=== PATIENT | male | born 1970 | race Caucasian/White ===

== ENCOUNTER 2020-12-30 00:16 | Emergency (ER) | payer MEDICAID, SELFPAY ==
[2020-12-30 00:19] VITALS: BP 144/102; PULSE 98; RESP 18; TEMP 36.9; O2SAT 98; BMI 29.5
[2020-12-30 01:21] VITALS: BP 153/92; PULSE 82; RESP 16; O2SAT 96
--- NOTE | 2020-12-30 01:42 | ED.SKABFB ---
HPI - Skin/Abscess/Foreign Bdy General Chief complaint: Skin/Abscess/Foreign Body Stated complaint: abcess Time Seen by Provider: 12/30/20 01:34 Source: patient Mode of arrival: ambulatory Limitations: no limitations History of Present Illness HPI narrative: Patient comes emergency room complaining of swelling, redness and warmth in the right forearm that started 10 days ago. Patient states that a few days ago, he did a needle aspiration at home and was able to express a significant amount of pus. Patient states that for the last 2 days, he has been taking clindamycin that was given by his mother who had left over medication. Patient denies fever chills. MD complaint: abscess/boil Related Data Previous Rx's Medication Instructions Recorded cephalexin [Keflex] 750 mg PO BID #14 cap 12/30/20 doxycycline hyclate 100 mg PO DAILY #14 cap 12/30/20 tramadol 50 mg PO Q8H PRN #10 tab 12/30/20 Allergies Allergy/AdvReac Type Severity Reaction Status Date / Time No Known Allergies Allergy Verified 12/30/20 00:18 [No Known Allergies*] Review of Systems Review of Systems: Constitutional : No Weight loss, No Fever, No Chills, No Night Sweats, No Fatigue, No Malaise ENT/Mouth : No Hearing loss, No Ear Pain, No Nasal Congestion, No Sinus Pain, No Hoarseness, No sore throat, No Rhinorrhea, No Swallowing Difficulty Eyes: No Eye Pain, No Swelling, No Redness, No Foreign Body, No Discharge, No Vision Changes Cardiovascular : No Chest Pain, No SOB, No Dyspnea on Exertion, No Orthopnea, No Edema, No Palpitations Respiratory : No Cough, No Sputum, No Wheezing, No Smoke Exposure, No Dyspnea Gastrointestinal : No Nausea, No Vomiting, No Diarrhea, No Constipation, No abdominal Pain, No Hematochezia, No Melena Genitourinary : no irregular bleeding, No Dysuria, No Urinary Frequency, No Hematuria, No Urinary Incontinence, No Urgency, No Flank Pain, No Urinary Flow Changes, No Hesitancy Musculoskeletal : No joint pain, No Myalgias, No Joint Swelling Skin : Right arm swelling and redness , pain to touch Neuro : No Weakness, No Numbness, No Paresthesias, No Loss of Consciousness, No Dizziness, No Headache Psych : No Anxiety/Panic, No Depression, No SI/HI/AH/VH, No Social Issues, Heme/Lymph: No Bruising, No Bleeding,No Lymphadenopathy Endocrine : No Polyuria, No Polydipsia, No Temperature Intolerance [facility] Social History Social History Alcohol intake: never Smoking Status: Current every day smoker Use of substances other than those prescribed or required for medical reasons: No Advance Directives: No Physical Exam Vital Signs: Vital Signs: Last Vital Signs Temp 98.5 F 12/30/20 00:19 Pulse 82 12/30/20 01:21 Resp 16 12/30/20 01:21 BP 153/92 H 12/30/20 01:21 Pulse Ox 96 12/30/20 01:21 Body Mass Index 29.5 Appearance: Alert. Oriented X3. No acute distress. Eyes: Pupils equal, round and reactive to light. ENT: Pharynx normal. Neck: Normal inspection. Neck supple. No lymph nodes noted. No crepitus CVS: Normal heart rate and rhythm. Pulses normal. Normal S1 and S2 Respiratory: No respiratory distress. Breath sounds normal. No Wheezing. No rales Abdomen: Soft and nontender. No rigidity. No distention. good BS x4 Skin: Skin warm and dry. Right arm swelling, erythema, pain to palpation, bedside ultrasound shows a small abscess, approximately 2 Extremities: No lower extremity edema. No lower extremity edema. No Lacerations. No Rash Neuro: Oriented X 3. No motor deficit. No sensory deficit. Moving all extermities. No slurred speech. Course Course Course Narrative: Patient tolerated well the procedure. A large amount of pus was expressed. Axilla procedure, patient was able to close and open his hand with no pain, able to flex and extend her wrist and elbow. Procedures Abscess I/D Site: upper extremity Side (if applicable): right Local Anesthetic: lidocaine 2% Amount of anesthesia used (mL): 10 Technique: incised with blade Amount of fluid expressed (mL): 30 Sent for culture/gram staining?: No Irrigation: Yes Packing used?: iodoform Discharge Plan Discharge Clinical Impression: Abscess of skin or subcutaneous tissue Qualifiers: Site of cutaneous abscess: extremity Site of cutaneous abscess of extremity: upper extremity Laterality: right Qualified Code(s): L02.413 - Cutaneous abscess of right upper limb Patient Disposition: Home, Self-Care Instructions: Abscess (ED), Abscess Follow-up (ED), Abscess Incision and Drainage (DC) Additional Instructions: The packing needs to be removed in 24 hours, it may be done in the emergency room or with your primary care physician. Please follow-up with your primary care physician tomorrow. If you have any worsening or new symptoms, please return to the emergency room or call 911 Prescriptions: New cephalexin [Keflex] 750 mg capsule 750 mg PO BID Qty: 14 RF: 0 doxycycline hyclate 100 mg capsule 100 mg PO DAILY Qty: 14 RF: 0 tramadol 50 mg tablet 50 mg PO Q8H PRN (Reason: pain) Qty: 10 RF: 0
[2020-12-30] MEDS: Lidocaine HCl 2 % MPF 5 ML VIAL 10 ML INFILTRATI (01:57)
[2020-12-30 02:00] VITALS: PULSE 75; RESP 18; O2SAT 98
[2020-12-30] MEDS: oxyCODONE HCl Immed Release 5 MG TABLET PO (02:23)
== END 2020-12-30 02:33 | disposition home or self-care (01) ==
PROVIDERS: Emergency Provider Emergency Medicine
DX: L02.413 Cutaneous abscess of right upper limb (principal); M79.621 Pain in right upper arm; F17.200 Nicotine dependence, unspecified, uncomplicated; Z71.6 Tobacco abuse counseling; Z79.899 Other long term (current) drug therapy
CPT/HCPCS: 10060; 99284

== ENCOUNTER 2021-01-01 11:10 | Emergency (ER) | payer MEDICAID, SELFPAY ==
[2021-01-01 11:21] VITALS: BP 144/96; PULSE 92; RESP 18; TEMP 36.4; O2SAT 95; BMI 31.4
--- NOTE | 2021-01-01 11:53 | ED_ITS ---
HPI - General Adult General Chief complaint: Recheck/Abnormal Lab/Rx Stated complaint: WOUND CHECK Time Seen by Provider: 01/01/21 11:53 Source: patient Limitations: no limitations History of Present Illness HPI narrative: Patient complaining questionable packing going into his abscess on his right forearm. Patient had abscess drained last week. Packing was still in place to not return to have it removed. Patient denies any pain fever Related Data Previous Rx's Medication Instructions Recorded cephalexin [Keflex] 750 mg PO BID #14 cap 12/30/20 doxycycline hyclate 100 mg PO DAILY #14 cap 12/30/20 tramadol 50 mg PO Q8H PRN #10 tab 12/30/20 Allergies Allergy/AdvReac Type Severity Reaction Status Date / Time No Known Allergies Allergy Verified 12/30/20 00:18 [No Known Allergies*] Review of Systems Constitutional: Constitutional: Denies chills, Denies fever(s) and Denies weakness Cardiovascular: Cardiovascular: Denies chest pain and Denies dyspnea Respiratory: Respiratory: Denies dyspnea Musculoskeletal: Musculoskeletal: Reports no additional musculoskeletal complaints Comments: No forearm pain Neurologic: Denies weakness [facility] Past Medical History Attestation statement: The following information was validated with the patient. Social History Social History Alcohol intake: never Smoking Status: Current every day smoker Advance Directives: Yes Advance Directives Information Provided: No Advance Directives on File: No Physical Exam Vital Signs: Vital Signs: Last Vital Signs Temp 97.6 F 01/01/21 11:21 Pulse 92 01/01/21 11:21 Resp 18 01/01/21 11:21 BP 144/96 H 01/01/21 11:21 Pulse Ox 95 01/01/21 11:21 Body Mass Index 31.4 vital signs have been reviewed as normal and appeared to be correct. Blood pressure normal. Heart rate normal. Respiration rate normal. Temperature normal. Oxygen saturation normal. Appearance: Alert. Oriented X3. No acute distress. Head: Normal external exam. Normocephalic. Atraumatic. Eyes: PERRLA. EOMI. CVS: Heart regular rate and rhythm no murmurs and rubs Respiratory: Breath sounds are clear to auscultation bilaterally. No accessory muscle use noted. Skin: Right forearm well-healing abscess no purulent discharge or erythema or induration. Extremities: No lower extremity edema. Extremities exhibit normal range of motion. Extremities nontender. Neuro: Oriented X 3. No motor deficit. Course Course Course Narrative: Differential diagnosis: Abscess check right Cellulitis 11:50 a.m. patient is concerned that the packing went inside his wound once the dressing was removed by the triage nurse packing was seen on the dressing. Patient instructed to follow up as needed continue any current medications. Discharge Plan Discharge Clinical Impression: Wound abscess Patient Disposition: Home, Self-Care Instructions: Abscess Follow-up (ED) Additional Instructions: Right forearm abscess is healing well Continue any antibiotics that were prescribed Prescriptions: No Action cephalexin [Keflex] 750 mg capsule 750 mg PO BID Qty: 14 RF: 0 doxycycline hyclate 100 mg capsule 100 mg PO DAILY Qty: 14 RF: 0 tramadol 50 mg tablet 50 mg PO Q8H PRN (Reason: pain) Qty: 10 RF: 0
== END 2021-01-01 12:00 | disposition home or self-care (01) ==
PROVIDERS: Emergency Provider Emergency Medicine
DX: L02.413 Cutaneous abscess of right upper limb (principal); F17.200 Nicotine dependence, unspecified, uncomplicated; Z71.6 Tobacco abuse counseling; Z79.899 Other long term (current) drug therapy
CPT/HCPCS: 99282; 99283

== ENCOUNTER 2021-03-14 18:30 | Emergency (ER) | payer MEDICAID, SELFPAY | END 2021-03-14 19:51 | disposition left against medical advice (07) | LOC: HO.ED 19:49 | PROVIDERS: Emergency Provider Emergency Medicine | DX: S99.929A Unspecified injury of unspecified foot, initial encounter (principal); X58.XXXA Exposure to other specified factors, initial encounter; Y93.9 Activity, unspecified; Y92.9 Unspecified place or not applicable; Y99.9 Unspecified external cause status ==

== ENCOUNTER 2022-04-05 10:41 | Outpatient (REF) | payer MEDICAID, SELFPAY ==
[2022-04-05 11:57] LABS: Alanine Aminotransferase 17 U/L (0-40); Albumin Level 4.2 g/dL (3.5-5.0); Alkaline Phosphatase 78 U/L (39-117); Anion Gap 14 (12-20); Aspartate Amino Transferase 16 U/L (5-37); Bilirubin Total 0.3 mg/dL (0.0-1.0); Blood Urea Nitrogen 12 mg/dL (9-16); Calcium 9.1 mg/dL (8.4-10.2); Carbon Dioxide 24 mmol/L (22-29); Chloride 105 mmol/L (96-108); Estimated Glomerular Filt Rate > 60; Glucose Random 92 mg/dL (60-115); Potassium 4.4 mmol/L (3.3-5.1); Sodium 139 mmol/L (135-145); Total Protein 7.2 g/dL (6.5-8.0)
[2022-04-06 04:33] LABS: HBS Num1 0.06 mIU/mL (0-7.99); HBsAGNum1 0.28 S/CO (0.00-0.99); Hepatitis B Surface Antigen Negative (Negative); ~Hepatitis B Surface Antibody NONREACTIVE (Nonreactive)
[2022-04-06 04:56] LABS: Hepatitis A Antibody IgG Nonreactive (Nonreactive); ~Hepatitis A Antibody IgG 0.56 S/CO (0.00-0.99)
[2022-04-07 00:37] LABS: Rubella IgG Antibody <0.90 Index
== END 2022-04-05 10:42 | disposition home or self-care (01) ==
LOC: HO.LAB 10:41
PROVIDERS: Visit Provider Nurse Practitioner Community Health
DX: Z00.00 Encounter for general adult medical examination without abnormal findings (principal)
CPT/HCPCS: 36415; 80053; 86706; 86708; 86735; 86762; 86765; 86787; 87340

== ENCOUNTER 2022-07-13 14:01 | Emergency (ER) | payer MEDICAID, SELFPAY ==
--- NOTE | ~2022-07-13 | US_ITS ---
EXAMINATION: US VENOUS ULTRASOUND WITH DOPPLER LOWER EXTREMITY, LEFT CLINICAL INFORMATION: IVDU, swelling. COMPARISON: None TECHNIQUE: Ultrasound of the deep veins is performed from the hip to the calf with compression sonography and color and pulse Doppler assessment. Spectral analysis with color-flow imaging is performed. FINDINGS: There is normal venous compression and respiratory variation and augmented flow. The visualized common femoral vein, superficial femoral vein, profunda femoral vein, popliteal vein, and the trifurcation region shows no evidence of deep venous thrombosis. No left popliteal cyst. In the region of concern in the distal calf heterogeneous subcutaneous collection with edema and horizontal orientation measuring approximately 2.9 x 1.3 x 2.6 cm. Color Doppler showed no abnormal vascular flow. US/US venous duplex LE LT IMPRESSION: 1. No evidence for deep venous thrombosis in the visualized veins of the left lower extremity. 2. Small heterogeneous collection with surrounding edema in the left calf in the region of concern. No hypervascularity to suspect abscess. * If these findings persist or enlarge, short-term repeat targeted soft tissue ultrasound can be performed as clinically indicated to assess for change.
[2022-07-13 14:06] VITALS: BP 138/72; PULSE 80; RESP 20; TEMP 36.9; O2SAT 97; BMI 29.5
--- NOTE | 2022-07-13 15:01 | ED.SKABFB ---
HPI - Skin/Abscess/Foreign Bdy General Chief complaint: Skin/Abscess/Foreign Body Stated complaint: L Ankle Abscess Time Seen by Provider: 07/13/22 14:18 Source: patient Mode of arrival: ambulatory Limitations: no limitations History of Present Illness HPI narrative: 51yoF c PMHx of bipolar room disorder, anxiety, neuropathy, lumbar radiculopathy, Hx pf DVT and IV drug use presenting to the ER with complaints of a lump to his left lower extremity that appears red. He reports that he was moving some stuff in his parent's house and he believes that he might of broke a piece of wood when he was moving stuff and he is unsure if there is a possible foreign body. He reports that he did not recently do any IV drugs although he is noted to have fresh track cintron near the lump/redness area. He denies any fevers, history of MRSA or any other symptoms complaints or concerns at this time. MD complaint: abscess/boil Onset (ago): day(s) (3 days ) Location: LLE Severity: mild Quality: aching and constant Pain Consistency: constant Relieving factors: none Exacerbating factors: palpation Context: IVDA Associated symptoms: denies other symptoms Treatments prior to arrival: none Related Data Previous Rx's Medication Instructions Recorded cephalexin 750 mg capsule (Keflex) 750 mg PO BID #14 caps 12/30/20 doxycycline hyclate 100 mg capsule 100 mg PO DAILY #14 caps 12/30/20 tramadol 50 mg tablet 50 mg PO Q8H PRN pain #10 tabs 12/30/20 cephalexin 500 mg capsule 500 mg PO Q6H 10 days #40 caps 07/13/22 doxycycline monohydrate 100 mg 100 mg PO BID 10 days #20 tabs 07/13/22 tablet Allergies Allergy/AdvReac Type Severity Reaction Status Date / Time bee pollen [bee stings] Allergy Anaphylaxis Verified 07/13/22 14:17 Review of Systems Review of Systems: Constitutional : Denies history of same, Denies any other sites involved, + IV drug use, Denies history of MRSA, Denies swollen glands, Denies injury, Denies Fever, Denies Chills, + Sig Pain, Denies Systemic symptoms Cardiovascular : No Chest Pain, No SOB Respiratory : No Dyspnea Gastrointestinal : No abdominal pain Musculoskeletal : No Joint Swelling Skin : + abscess with surrounding erythema, No skin laceration, No Foreign bodies, No spreading rash, Denies bites, Denies discharge, Neuro : No Weakness, No Numbness/tingling Psych : No SI/HI/thoughts of self injury Yes all other systems are reviewed and are negative [facility] Past Medical History Attestation statement: The following information was validated with the patient. Source: old records reviewed and nursing notes reviewed Social History Social History Alcohol intake: never Advance Directives: No Advance Directives Information Provided: Yes Physical Exam Vital Signs: Vital Signs: Last Vital Signs Temp 98.4 F 07/13/22 14:06 Pulse 80 07/13/22 14:06 Resp 20 07/13/22 14:06 BP 138/72 07/13/22 14:06 Pulse Ox 97 07/13/22 14:06 O2 Del Method 07/13/22 14:06 BMI result Body Mass Index 29.5 vital signs have been reviewed as normal and appeared to be correct. Blood pressure normal Heart rate normal. Respiration rate normal. Temperature normal. Oxygen saturation normal. Appearance: Alert. Oriented X3. No acute distress. Head: Normal external exam. Normocephalic. Atraumatic. Eyes: PERRLA. EOMI. Conjunctiva and sclera normal. Eyelids normal. ENT: Pharynx normal. Uvula midline. Moist mucous membranes. Neck: Normal inspection. Neck supple. FROM. CVS: Normal heart rate and rhythm. Respiratory: No respiratory distress. Painless inspiration. Skin: Skin warm and dry. Normal skin color. Normal skin turgor. No rashes/lesions/lacerations noted. Extremities: To left lower extremity medial aspect distal leg right above the ankle near the calf patient has fresh track cintron and he has some soft tissue swelling that is warm to the touch and erythematous consistent with cellulitis infection. Questioning abscess versus DVT. There is no obvious lower extremity edema noted. He does have some left lower extremity calf tenderness. Extremities exhibit normal range of motion. Extremities nontender. Neuro: Oriented X 3. No motor deficit. No sensory deficit. Reflexes normal. Normal steady gait. No focal neuro deficits noted. Vascular: + radial pulses/+ 2 distal pedal pulses/+2 dorsalis pedis b/l. Normal cap refill. No cyanosis noted to upper extremity nails and lower extremity toes nails. Course Course Course Narrative: 15pm - 51yoF c PMHx of bipolar room disorder, anxiety, neuropathy, lumbar radiculopathy, Hx pf DVT and IV drug use presenting to the ER with complaints of a lump to his left lower extremity that appears red. He reports that he was moving some stuff in his parent's house and he believes that he might of broke a piece of wood when he was moving stuff and he is unsure if there is a possible foreign body. He reports that he did not recently do any IV drugs although he is noted to have fresh track cintron near the lump/redness area. Plan: Will obtain ultrasound of left lower extremity to evaluate for possible DVT versus abscess. Will re-evaluate. Reevaluation(s) Reevaluation #1: Negative for DVT on ultrasound. Revealed a possible small abscess therefore patient now status post I&D of abscess. Patient was punching the wall and threatening to ?knock me out during the procedure otherwise there were no complications. Patient will be discharged with antibiotics and instructions return if any new or worsening symptoms. Time: 17:16 MDM - Skin/Abscess/Foreign Bdy Medical Records Attestation: I reviewed the patient's medical records. Imaging Data Left lower extremity ultrasound: Attestation: I personally reviewed and interpreted this imaging study as follows: Radiologist's impression: FINDINGS: There is normal venous compression and respiratory variation and augmented flow. The visualized common femoral vein, superficial femoral vein, profunda femoral vein, popliteal vein, and the trifurcation region shows no evidence of deep venous thrombosis. No left popliteal cyst. In the region of concern in the distal calf heterogeneous subcutaneous collection with edema and horizontal orientation measuring approximately 2.9 x 1.3 x 2.6 cm. Color Doppler showed no abnormal vascular flow. US/US venous duplex LE LT IMPRESSION: ? 1. No evidence for deep venous thrombosis in the visualized veins of the left lower extremity. 2. Small heterogeneous collection with surrounding edema in the left calf in the region of concern. No hypervascularity to suspect abscess. * If these findings persist or enlarge, short-term repeat targeted soft tissue ultrasound can be performed as clinically indicated to assess for change. Procedures Abscess I/D Site: lower extremity Side (if applicable): left Local Anesthetic: lidocaine 1% Amount of anesthesia used (mL): 4 Technique: incised with blade Amount of fluid expressed (mL): 4 Sent for culture/gram staining?: No Irrigation: Yes Packing used?: none Complications: other (No complications) Discharge Plan Discharge Clinical Impression: Abscess of skin or subcutaneous tissue, Cellulitis Patient Disposition: Home, Self-Care Instructions: Cellulitis (ED), Abscess Incision and Drainage (DC) Prescriptions: New doxycycline monohydrate 100 mg tablet 100 mg PO BID 10 Days Qty: 20 0RF cephalexin 500 mg capsule 500 mg PO Q6H 10 Days Qty: 40 0RF No Action cephalexin [Keflex] 750 mg capsule 750 mg PO BID Qty: 14 0RF doxycycline hyclate 100 mg capsule 100 mg PO DAILY Qty: 14 0RF tramadol 50 mg tablet 50 mg PO Q8H PRN (Reason: pain) Qty: 10 0RF Referrals: Physician,Unknown J [Primary Care Provider] - 2 days (your pcp)
[2022-07-13] MEDS: Lidocaine HCl 1 % MPF 2 ML VIAL INFILTRATI ×2 (17:17)
== END 2022-07-13 17:23 | disposition home or self-care (01) ==
PROVIDERS: Emergency Provider Emergency Medicine
DX: L02.416 Cutaneous abscess of left lower limb (principal); R60.0 Localized edema; Z79.899 Other long term (current) drug therapy
CPT/HCPCS: 10060; 93971; 99283; 99284

== ENCOUNTER 2022-10-19 18:41 | Emergency (ER) | payer MEDICAID, OTHER, SELFPAY ==
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
[2022-10-19 19:07] VITALS: BP 180/100; PULSE 113; O2SAT 98; BMI 25.7
[2022-10-19 19:43] VITALS: BP 141/72; PULSE 80; RESP 18; TEMP 36.3; O2SAT 96
--- NOTE | 2022-10-19 19:44 | PC.NURSE ---
Pt. changed over and belongings sent to detox.
[2022-10-19 20:45] LABS: MANUAL DIFF FLAG NO
[2022-10-19 20:47] LABS: Basophils Percent Auto 0.3 % (0-2); Eosinophils Absolute Auto 0.2 X10*3/uL (0.0-0.4); Eosinophils Percent Auto 1.5 % (0-4); Hemoglobin 10.8 g/dl (14.0-18.0); Imm Gran Abs Auto 0.04 X10*3/uL (0.00-0.03); Imm Gran Pct Auto 0.3 % (0.0-0.4); Lymphocytes Percent Auto 15.9 % (20-40); Mean Corpuscular HGB Conc 32.7 g/dl (31.0-36.0); Mean Corpuscular Hemoglobin 28.6 pg (27.0-33.0); Mean Corpuscular Volume 87.3 fL (80.0-98.0); Monocytes Percent Auto 8.3 % (2-11); Neutrophils Absolute Auto 9.1 x10*3/uL (2.0-8.3); Neutrophils Percent Auto 73.7 % (45-73); Platelet Count 263 X10*3/uL (160-400); Red Blood Count 3.78 X10*6/uL (4.60-5.80); White Blood Count 12.4 X10*3/uL (4.8-10.8)
[2022-10-19 21:11] LABS: Alanine Aminotransferase 16 U/L (0-40); Albumin Level 3.6 g/dL (3.5-5.0); Alkaline Phosphatase 49 U/L (39-117); Anion Gap 11 (12-20); Aspartate Amino Transferase 26 U/L (5-37); Bilirubin Total 0.5 mg/dL (0.0-1.0); Blood Urea Nitrogen 30 mg/dL (9-16); Calcium 8.7 mg/dL (8.4-10.2); Carbon Dioxide 28 mmol/L (22-29); Chloride 105 mmol/L (96-108); Creatinine Clr Calc Pharmacy 95.1; Estimated Glomerular Filt Rate > 60; Ethanol < 10 mg/dL; Glucose Random 153 mg/dL (60-115); Sodium 140 mmol/L (135-145); Total Protein 5.8 g/dL (6.5-8.0)
[2022-10-19 21:58] LABS: Amphetamine Screen Urine Not Detected (Not Detect); Barbiturates, Urine Not Detected (Not Detect); Benzodiazepines Screen Urine Not Detected (Not Detect); Cannabinoid Screen Urine Not Detected (Not Detect); Cocaine Screen Urine POSITIVE (Not Detect); Fentanyl, urine POSITIVE (Not Detect); Opiate Screen Urine POSITIVE (Not Detect); Phencyclidine Screen Urine Not Detected (Not Detect)
[2022-10-19] MEDS: Ibuprofen 600 MG TABLET PO (23:06)
== END 2022-10-19 23:09 | disposition home or self-care (01) ==
PROVIDERS: Nurse Practitioner Family; Emergency Provider Internal Medicine
DX: F19.10 Other psychoactive substance abuse, uncomplicated (principal); F41.9 Anxiety disorder, unspecified; F32.A Depression, unspecified; Z72.89 Other problems related to lifestyle; Z63.0 Problems in relationship with spouse or partner; Z73.3 Stress, not elsewhere classified
CPT/HCPCS: 36415; 80053; 80307; 82077; 85025; 99284; S9485